=== PATIENT | male | born 1935 | race American Indian/Alaskan Native ===

== ENCOUNTER 2017-11-23 10:05 | Inpatient (IN) | payer MEDICARE, OTHER ==
--- NOTE | 2017-11-23 10:13 | ED PDOC ---
Arrival/HPI - General Historian: Patient <Rodger Massey - Last Filed: 11/23/17 11:45> <ColeenHan jefferson - Last Filed: 11/23/17 17:17> - General Time Seen by Provider: 11/23/17 10:09 - History of Present Illness Narrative History of Present Illness (Text): 11/23/17 10:11 82 y/o male, pmh including a.fibb/dm/bph/chf/copd, taking xarelto, allergic penicillin/iodine, c/o coughing x 1 week. Pt. stated that he has been coughing for the past 1 week, worsening for the past 4 days with shortness of breath, admits fatigue, previous senior living smoker, no night sweat, no rash, no palpitation, no leg swelling, no palpitation, no night sweat, no rash, no other medical or psychological complaints. Pt. admits shortness of breath with excessive coughing (Rodger Massey) Past Medical History - Provider Review Nursing Documentation Reviewed: Yes - Infectious Disease Hx of Infectious Diseases: None - Cardiac Hx Atrial Fibrillation: Yes Hx Cardiac Arrhythmia: Yes (07-08-16) Hx Congestive Heart Failure: Yes Hx Hypertension: Yes Hx Pacemaker: Yes Hx Peripheral Edema: Yes - Pulmonary Hx Asthma: Yes Hx Chronic Obstructive Pulmonary Disease (COPD): Yes Hx Pneumonia: Yes Hx Sleep Apnea: Yes - Neurological Hx Neurological Disorder: Yes - HEENT Hx HEENT Disorder: Yes Hx Cataracts: Yes (NADEGE. CATARACT EXTRACTION, 2004) Hx Glaucoma: Yes ("TOUCH") - Renal Hx Kidney Stones: Yes - Endocrine/Metabolic Hx Endocrine Disorders: Yes Hx Diabetes Mellitus Type 2: Yes - Hematological/Oncological Hx Anemia: Yes - Integumentary Hx Dermatological Disorder: No - Musculoskeletal/Rheumatological Hx Arthritis: Yes Hx Fractures: Yes (LEFT UPPER ARM) Hx Osteoporosis: Yes - Gastrointestinal Hx Diverticulitis: Yes - Genitourinary/Gynecological Hx Genitourinary Disorders: No Hx Prostate Problems: Yes (BPH) Hx Urinary Tract Infection: Yes Other/Comment: BPH. over active bladder - Psychiatric Hx Depression: Yes Hx Substance Use: No - Past Surgical History Past Surgical History: No Previous - Surgical History Hx Cardiac Catheterization: Yes (X3) Hx Orthopedic Surgery: Yes (LEFT UPPER ARM FX. WITH METAL PINS) - Anesthesia Hx Anesthesia: Yes Hx Anesthesia Reactions: No Hx Malignant Hyperthermia: No - Suicidal Assessment Feels Threatened In Home Enviroment: No <Rodegr Massey - Last Filed: 11/23/17 11:45> Family/Social History - Physician Review Nursing Documentation Reviewed: Yes Family/Social History: Unknown Family HX Smoking Status: Former Smoker Hx Alcohol Use: No Hx Substance Use: No <Rodger Massey - Last Filed: 11/23/17 11:45> Allergies/Home Meds <Rodger Massey - Last Filed: 11/23/17 11:45> <Han Horne - Last Filed: 11/23/17 17:17> Allergies/Adverse Reactions: Allergies Iodine and Iodide Containing Produc Allergy (Verified 11/23/17 10:06) SWELLING Penicillins Allergy (Verified 11/23/17 10:06) RASH Home Medications: Home Meds Medication Instructions Recorded Confirmed Ambrisentan [Letairis] 10 mg PO DAILY 01/08/14 11/23/17 Tamsulosin [Flomax] 0.4 mg PO DAILY 04/27/15 11/23/17 Metformin HCl [Glucophage] 500 mg PO BID 07/08/16 11/23/17 Pantoprazole [Protonix EC Tab] 40 mg PO DAILY 07/08/16 11/23/17 Polyethylene Glycol 3350 [Miralax] 3 ml PO DAILY 07/08/16 11/23/17 Pravastatin Sodium 40 mg PO HS 07/08/16 11/23/17 Riociguat [Adempas] 2 mg PO TID 11/21/16 11/23/17 Tramadol HCl/Acetaminophen 1 tab PO BID 11/21/16 11/23/17 [Acetaminophen-Tramadol HCl 325 mg-37.5 mg] Cholecalciferol [Vitamin D 1000 IU] 2,000 unit PO DAILY 11/23/17 11/23/17 Fluticasone Propionate [Flovent 2 puff NEB BID 11/23/17 11/23/17 Hfa] Ipratropium [Atrovent HFA] 2 puff NEB QID 11/23/17 11/23/17 Levocetirizine Dihydrochloride 5 mg PO DAILY 11/23/17 11/23/17 [Xyzal] Multivitamin [Men's Multi-Vitamin] 1 tab PO DAILY 11/23/17 11/23/17 Rivaroxaban [Xarelto] 20 mg PO QPM 11/23/17 11/23/17 Review of Systems - Review of Systems Constitutional: absent: Fatigue, Fevers Eyes: absent: Vision Changes ENT: absent: Hearing Changes Respiratory: SOB, Cough, Sputum. absent: Wheezing Cardiovascular: Chest Pain Gastrointestinal: absent: Abdominal Pain, Nausea, Vomiting Musculoskeletal: absent: Arthralgias, Back Pain Skin: absent: Rash, Pruritis Neurological: absent: Headache Psychiatric: absent: Anxiety, Depression, Suicidal Ideation <Rodger Massey Q - Last Filed: 11/23/17 11:45> Physical Exam Vital Signs Reviewed: Yes Temperature: Afebrile Blood Pressure: Normal Pulse: Regular Respiratory Rate: Normal Appearance: Positive for: Ill-Appearing, Uncomfortable Pain Distress: None Mental Status: Positive for: Alert and Oriented X 3 - Systems Exam Head: Present: Atraumatic, Normocephalic Pupils: Present: PERRL Extroacular Muscles: Present: EOMI Conjunctiva: Present: Normal Mouth: Present: Moist Mucous Membranes Neck: Present: Normal Range of Motion Respiratory/Chest: Present: Wheezes, Decreased Breath Sounds, Rhonchi. No: Respiratory Distress, Accessory Muscle Use, Rales, Retracting, Tachypneic Cardiovascular: Present: Regular Rate and Rhythm, Normal S1, S2. No: Murmurs Abdomen: No: Tenderness, Distention, Peritoneal Signs Back: Present: Normal Inspection Upper Extremity: Present: Normal Inspection. No: Cyanosis, Edema Lower Extremity: Present: Normal Inspection. No: Edema Neurological: Present: GCS=15, Speech Normal, Motor Func Grossly Intact, Gait Normal, Memory Normal Skin: Present: Warm, Dry, Normal Color. No: Rashes Psychiatric: Present: Alert, Oriented x 3, Normal Insight, Normal Concentration <Rodger Massey Q - Last Filed: 11/23/17 11:45> Vital Signs Temp Pulse Resp BP Pulse Ox 11/23/17 14:00 78 11/23/17 13:19 98 H 18 148/69 100 11/23/17 12:59 98.2 F 60 16 153/70 H 11/23/17 10:48 98.2 F 60 16 153/70 H 100 11/23/17 10:10 98.4 F 69 17 148/71 94 L Medical Decision Making - Critical Care Critical Care Minutes: 30 minutes Critical Care Time: Unstable - Lab Interpretations I have reviewed the lab results: Yes - RAD Interpretation Engineering Laboratory Technician: Radiologist - EKG Interpretation Interpreted by ED Physician: Yes Type: 12 lead EKG Comparison: Com.w/previous EKG <Rodger Massey - Last Filed: 11/23/17 11:45> <ColeenLisaWestalana - Last Filed: 11/23/17 17:17> ED Course and Treatment: 11/23/17 10:28 -labs/cardiac enzyme/bnp/rapid flu -ekg -cxr -IV duoneb/solumedrol -observe and reassess 11/23/17 11:35 -HEART score is 4 (pt. is on xarelto) -EKG: NSR @ 66 BPM, no acute ST or T wave changes compared with previous ekg. -Chest xray show no active disease -Labs show no acute findings -Rapid flu is negative -BNP 470 -Cardiac enzyme is negative for the first set, will need 24 hours set -Pt. feels still chest is congested, wheezing decreased but still persist, exertion shortness of breath, will admit to tele for observation, Pt. request to admit to Dr. Maya service as he was seen by Dr. Maya before. -Dr. Maya paged. 11/23/17 11:45 -I discussed the case with Dr. Maya, discussed about the labs/radiologist results, agreed to admit to her service with Dr. Omalley on the routine consult. -I discussed the case with Dr. Horne, discussed about the labs/radiologist results, he will put in the admission. (Rodger Massey) - Critical Care Narrative Critical Care (Text): 11/23/17 11:45 pt. received 3 duonebs with IV steroid, limited relief and not completely asymptomatic, will need observation to tele. (Rodger Massey) - Lab Interpretations Lab Results: 11/23/17 10:45 11/23/17 10:45 Lab Results 11/23/17 10:45: Sodium 141, Potassium 3.7, Chloride 101, Carbon Dioxide 30, Anion Gap 14, BUN 18, Creatinine 1.2, Est GFR ( Amer) > 60, Est GFR (Non- Af Amer) 58, Random Glucose 110, Calcium 9.1, Magnesium 1.9, Total Bilirubin 0.4 , AST 22, ALT 26, Alkaline Phosphatase 46, Lactate Dehydrogenase 441, Total Creatine Kinase 218, Troponin I 0.02 D, NT-Pro-B Natriuret Pep 470 H, Total Protein 7.2, Albumin 4.4, Globulin 2.8, Albumin/Globulin Ratio 1.6 11/23/17 10:45: Influenza Typ A,B (EIA) Negative for flu a/b 11/23/17 10:45: WBC 3.4 L D, RBC 3.81, Hgb 11.1 L, Hct 34.3 L, MCV 90.0, MCH 29.1, MCHC 32.4, RDW 14.7 H, Plt Count 111 L, MPV 9.7, Gran % 59.8, Lymph % ( Auto) 26.2, Hamb[place] % (Auto) 8.2 H, Eos % (Auto) 5.5 H, Baso % (Auto) 0.3, Gran # 2.05, Lymph # (Auto) 0.9 L, Hamblen # (Auto) 0.3, Eos # (Auto) 0.2, Baso # (Auto) 0.01 - RAD Interpretation Radiology Orders: 11/23/17 10:26 CHEST PORTABLE [RAD] Stat LUNGS: No active pulmonary disease. PLEURA: No significant pleural effusion identified, no pneumothorax apparent. CARDIOVASCULAR: Normal. OSSEOUS STRUCTURES: No significant abnormalities. VISUALIZED UPPER ABDOMEN: Normal. OTHER FINDINGS: None. IMPRESSION: No active disease. (Rodger Massey) - EKG Interpretation EKG Interpretation (Text): 11/23/17 10:48 -EKG: NSR @ 66 BPM, no acute ST or T wave changes compared with previous ekg. ( Rodger Massey) - Medication Orders Current Medication Orders: Arformoterol Tartrate (Brovana) 15 mcg IH [id number] [facility] Atorvastatin Calcium (Lipitor) 10 mg PO HS [facility] Budesonide (Pulmicort Respules) 0.5 mg IH [id number] [facility] Cholecalciferol (Vitamin D) 1,000 intlu PO DAILY [facility] Doxycycline Hyclate (Doryx) 100 mg PO Q12 [facility] PRN Reason: Protocol Metformin HCl (Glucophage) 500 mg PO BID [facility] Methylprednisolone (Solu-Medrol) 40 mg IVP Q12 [facility] Montelukast Sodium (Singulair) 10 mg PO HS [facility] Multivitamins (Thera Tab) 1 tab PO DAILY [facility] Non-Formulary Medication (Ambrisentan [Letairis]) 10 mg PO DAILY [facility] Non-Formulary Medication (Riociguat [Adempas]) 2 mg PO TID [facility] Pantoprazole Sodium (Protonix Ec Tab) 40 mg PO DAILY [facility] Polyethylene Glycol (Miralax) 17 gm PO DAILY [facility] Rivaroxaban (Xarelto) 20 mg PO QPM [facility] PRN Reason: Protocol Sotalol HCl (Betapace) 80 mg PO BID [facility] Tamsulosin HCl (Flomax) 0.4 mg PO DAILY [facility] Tramadol/Acetaminophen (Ultracet 37.5/325 Mg) 1 tab PO BID [facility] Discontinued Medications Albuterol/Ipratropium (Duoneb 3 Mg/0.5 Mg (3 Ml) Ud) 3 ml IH STAT STA Stop: 11/23/17 10:27 Last Admin: 11/23/17 10:27 Dose: 3 ml Albuterol/Ipratropium (Duoneb 3 Mg/0.5 Mg (3 Ml) Ud) 3 ml IH STAT STA Stop: 11/23/17 10:28 Last Admin: 11/23/17 10:47 Dose: 3 ml Albuterol/Ipratropium (Duoneb 3 Mg/0.5 Mg (3 Ml) Ud) 3 ml IH STAT STA Stop: 11/23/17 11:47 Last Admin: 11/23/17 11:48 Dose: Methylprednisolone (Solu-Medrol) 125 mg IVP STAT STA Stop: 11/23/17 11:35 Last Admin: 11/23/17 11:47 Dose: 125 mg IVP Administration Document 11/23/17 11:47 EWO (Rec: 11/23/17 11:47 EWO [id number]) Charges for Administration # of IVP Administrations 1 - PA / [employer] DES[employer]ER / Resident Statement / has reviewed & agrees with the documentation as recorded. <Rodger Massey - Last Filed: 11/23/17 11:45> - PA / COSTUME DESIGN TEACHER / Resident Statement / has reviewed & agrees with the documentation as recorded. <Han Horne - Last Filed: 11/23/17 17:17> Disposition/Present on Arrival - Present on Arrival Any Indicators Present on Arrival: No History of DVT/PE: No History of Uncontrolled Diabetes: No Urinary Catheter: No History of Decub. Ulcer: No History Surgical Site Infection Following: None - Disposition Have Diagnosis and Disposition been Completed?: Yes Disposition Time: 10:29 Patient Plan: Admission, Observation, Telemetry <Rodger Massey - Last Filed: 11/23/17 11:45> <Han Horne - Last Filed: 11/23/17 17:17> - Disposition Diagnosis: COPD (chronic obstructive pulmonary disease), Chest pain Disposition: HOSPITALIZED Patient Problems: Current Active Problems Problem Status Onset COPD (chronic obstructive pulmonary disease) Acute Chest pain Acute Condition: STABLE
[2017-11-23] MEDS ORDERED: Albuterol-Ipratrop 3 mg / 0.5 (3 ml) UD IH STA ×3 (10:26→11:46)
[2017-11-23 10:53] LABS: BASO # 0.01 K/mm3 (0.0-2.0); BASO % 0.3 % (0.0-3.0); EOS # 0.2 (0.0-0.7); EOS % 5.5 % (1.5-5.0); GRAN # 2.05 (1.4-6.5); GRAN % 59.8 % (50.0-68.0); HEMOGLOBIN 11.1 g/dL (14.0-18.0); LYMPH # 0.9 (1.2-3.4); LYMPH % 26.2 % (22.0-35.0); MEAN CORPUSCULAR HEMOGLOBIN 29.1 pg (25.0-35.0); MEAN CORPUSCULAR HGB CONC 32.4 g/dl (31.0-37.0); MEAN PLATELET VOLUME 9.7 fl (7.0-11.0); MONO # 0.3 (0.1-0.6); MONO % 8.2 % (1.0-6.0); RBC 3.81 10^6/uL (3.5-6.1); RED CELL DISTRIBUTION WIDTH 14.7 % (11.5-14.5); WHITE BLOOD COUNT 3.4 10^3/ul (4.5-11.0)
--- NOTE | 2017-11-23 10:56 | RAD ---
HISTORY: cough COMPARISON: 07/08/2016 FINDINGS: LUNGS: No active pulmonary disease. PLEURA: No significant pleural effusion identified, no pneumothorax apparent. CARDIOVASCULAR: Normal. OSSEOUS STRUCTURES: No significant abnormalities. VISUALIZED UPPER ABDOMEN: Normal. OTHER FINDINGS: None. IMPRESSION: No active disease.
[2017-11-23 11:06] LABS: ALB/GLOB RATIO 1.6 (1.1-1.8); ALBUMIN 4.4 g/dL (3.0-4.8); ALT/SGPT 26 U/L (7-56); AST/SGOT 22 U/L (17-59); BLOOD UREA NITROGEN 18 mg/dL (7-21); CALCIUM 9.1 mg/dL (8.4-10.5); GFR AFRICAN-AMERICAN > 60; GFR NON-AFRICAN AMERICAN 58
[2017-11-23 11:17] LABS: B-TYPE NATRIURETIC PEPTIDE 470 pg/mL (0-450); TROPONIN I 0.02 ng/mL
[2017-11-23] MEDS ORDERED: Albuterol-Ipratrop 3 mg / 0.5 (3 ml) UD IH SCH (11:45)
[2017-11-23 13:05] VITALS: BMI 30.9
[2017-11-23] MEDS: TraMADol/Apap 37.5/325 mg Tab PO SCH (17:27)
[2017-11-23] MEDS: RIOCIGUAT 2 MG PO SCH (17:29)
[2017-11-23] MEDS: Budesonide 0.5 mg/2 ml Inhal Susp UD IH SCH (20:15)
[2017-11-23] MEDS: Arformoterol 15 mcg/2 ml Inh Sol IH SCH (20:15)
[2017-11-23] MEDS: MethylPREDNISolone 40 mg Vial IVP SCH (21:31)
[2017-11-23] MEDS ORDERED: guaiFENesin 200 mg/10 ml Syrup UD PO STA (21:37)
--- NOTE | 2017-11-23 22:55 | CON ---
DATE: PULMONARY CONSULTATION REFERRING PHYSICIAN: Janelle Maya MD REASON FOR CONSULTATION: Cough, shortness of breath, rhinitis, sleep apnea syndrome. HISTORY OF PRESENT ILLNESS: This is an 82-year-old gentleman with known history of chronic obstructive lung disease, sleep apnea syndrome, congestive heart failure, diabetes, atrial fibrillation, comes in with rhinitis, postnasal drip, cough, facial pain. No hemoptysis, no hematemesis, no hematuria. No diarrhea reported. He had been noncompliant with CPAP. Claims that he gets congested nasal passages. PAST MEDICAL HISTORY: As per history of present illness, has a pacemaker, also has leg edema, history of renal stone, cataract surgery, diabetes, anemia, diverticulitis, BPH. SOCIAL HISTORY: Recent history of smoking. Denies any alcohol use. FAMILY HISTORY: No significant cardiopulmonary disease reported. ALLERGIES: IODINE AND PENICILLIN. MEDICATIONS: DuoNeb was given, also Solu-Medrol 125 mg one dose was given. His home medications are multivitamin, vitamin D, Xyzal, Atrovent, Flovent, Xarelto, metformin, Flomax, Adempas, Letairis and sotalol. REVIEW OF SYSTEMS: On and off headache, facial pain, rhinitis, postnasal drip, cough, shortness of breath. No chest pain, no nausea, no vomiting, no diarrhea, no dysuria. Does have some leg swelling. PHYSICAL EXAMINATION: GENERAL: Lying in the bed. VITAL SIGNS: Temperature is 98, heart rate is 98, respiratory rate is 20, blood pressure 148/69, pulse ox 100% on nasal cannula. HEENT: Moist mucous membranes. Small oral cavity. Crowded airway. Has a bilateral maxillary sinus tenderness. NECK: Supple. No JVD. LUNGS: Has a scattered rhonchi and few wheezing. HEART: S1 and S2. ABDOMEN: Soft, nontender. No organomegaly. EXTREMITIES: No edema. NEUROLOGIC: Awake, alert, follows simple commands. LABORATORY DATA: Shows hemoglobin 11.1, hematocrit 34.3, WBC 3.4, platelet is 111. Sodium 141, potassium 3.7, chloride 101, bicarbonate 30, BUN 18, creatinine 1.2, glucose 110, calcium is 9.1, magnesium 1.9, total bili 0.4, AST 22, ALT 26, alk phos is 46. LDH 441, proBNP 470, albumin is 4.4. Influenza A and B have been negative. Chest x-ray done in ER shows no active pulmonary disease. IMPRESSION AND PLAN: Sinusitis with postnasal drip, exacerbation of chronic obstructive lung disease, also has a sleep apnea syndrome, chronic obstructive lung disease, history of atrial fibrillation, pulmonary hypertension, diabetes, hypertension, cardiac arrhythmia requiring pacemaker, sleep apnea syndrome, history of renal stone. I agree with Dr. Maya's present treatment. We will continue IV Solu-Medrol, start him on doxycycline 100 mg twice a day, Singulair 10 mg at bedtime, Flonase one spray each nostril twice a day, Singulair 10 mg at bedtime. We will place him on CPAP 10 cm with 30% oxygen, gastric prophylaxis. Continue anticoagulation. We recommend pulmonary function tests as outpatient. Encourage the patient to use continuous positive airway pressure. Thank you and we will follow with you. Carey Omalley MD
--- NOTE | 2017-11-24 04:27 | HP ---
CHIEF COMPLAINT: Coughing and shortness of breath, congested. HISTORY OF PRESENT ILLNESS: Mr. Anup Cain is an 82-year-old male with past medical history of atrial fibrillation, diabetes mellitus, BPH, congestive heart failure, COPD, taking Xarelto, came with coughing 1 week. Patient states that he has been coughing for the past 1 week, worsening for the past 4 days with shortness of breath, admits to fatigue, congested, previous long-term smoker. No night sweats. No rash. No palpitation. No swelling of legs. No fever, no chills. Patient admits to shortness of breath with excessive coughing. PAST MEDICAL HISTORY: Atrial fibrillation, is on Xarelto, congestive heart failure, hypertension, pacemaker, peripheral edema, asthma, COPD, pneumonia, sleep apnea, bilateral cataract extraction, glaucoma, kidney stones, diabetes mellitus, anemia, arthritis, fracture of the left upper arm, osteoporosis, BPH, UTI, overactive bladder, depression, cardiac catheterization. FAMILY HISTORY: Father and mother, noncontributory. HABITS: Former smoker. No drug, no ethanol now. ALLERGIES: PATIENT IS ALLERGIC WITH IODINE AND IODINE CONTAINING PRODUCTS, PENICILLIN. HOME MEDICATIONS: Letairis, Flomax, glucagon, Protonix, pravastatin, tramadol, vitamin D, atorvastatin, Xyzal, Xarelto, multivitamins. REVIEW OF SYSTEMS: Patient was seen and examined at the bedside in the emergency room, coughing with shortness of breath, dyspneic, nasal congestion, feeling fatigued and feverish. No vision changes. No hearing loss. No chest pain or abdominal pain, arthralgia, back pain. No rash or pruritus. No headache. No anxiety. PHYSICAL EXAMINATION: VITAL SIGNS: Temperature 98.2, pulse 60, respiratory rate 16, blood pressure 153/70, pulse oximetry 100%. HEENT: Head normocephalic, atraumatic. Eyes PERRLA. Extraocular muscles intact. Conjunctivae clear. Nose patent. Mucous membrane moist. NECK: Supple. No carotid bruit. No JVD or thyromegaly. CHEST: Bilaterally symmetrical. HEART: S1 and S2 positive. LUNGS: Clear to auscultation. ABDOMEN: Soft. Bowel sounds positive. No organomegaly. EXTREMITIES: No edema. No cyanosis. NEUROLOGICAL: The patient is awake and alert. Moving all 4 extremities. No focal deficits. LABORATORY DATA: White blood cells 3.4, hemoglobin 11.1, hematocrit 34.3, platelets 111. Sodium 141, potassium 3.7, BUN 18, creatinine 1.2, glucose 110. ASSESSMENT AND PLAN: Mr. Anup Cain is an 82-year-old male with multiple medical problems, leukopenia, anemia, thrombocytopenia, came with coughing, congestion. Has chronic obstructive pulmonary disease, chest pain. We kept the patient overnight. Pulmonary consult called. Patient has history of atrial fibrillation, diabetes mellitus, benign prostatic hypertrophy, congestive heart failure, chronic obstructive pulmonary disease, taking Xarelto. ALLERGIES TO PENICILLIN AND IODINE. Complaining of coughing of 1 week. Medications given. Bring old record. Restarted on Letairis, sotalol, Brovana, doxycycline, albuterol, metformin, atorvastatin, polysubstance abuse, MiraLax, Pulmicort Respules given also. Gastrointestinal and deep vein thrombosis prophylaxis. Repeat labs. We will follow up. Janelle Maya MD
[2017-11-24] MEDS: Arformoterol 15 mcg/2 ml Inh Sol IH SCH ×2 (08:34→20:20)
[2017-11-24] MEDS: Budesonide 0.5 mg/2 ml Inhal Susp UD IH SCH ×2 (08:34→20:20)
--- NOTE | 2017-11-24 08:48 | CARD ---
APPROVED REPORT EKG Measurement Heart [id number] <Conclusion> Normal sinus rhythm QS V 1, possible septal OH, new since 07/11/[address] & T wave abnormality, consider lateral ischemia Prolonged QT
[2017-11-24] MEDS: AMBRISENTAN 10 MG PO SCH (09:42)
[2017-11-24] MEDS: TraMADol/Apap 37.5/325 mg Tab PO SCH ×2 (09:43→17:25)
[2017-11-24] MEDS: Multivitamin Therapeutic Tab PO SCH (09:43)
[2017-11-24] MEDS: MethylPREDNISolone 40 mg Vial IVP SCH ×2 (09:43→21:11)
[2017-11-24] MEDS: Pantoprazole 40 mg EC Tab PO SCH (09:43)
[2017-11-24] MEDS: POLYETHYLENE GLYCOL 3350 17 GM/Dose PACKET PO SCH (09:43)
[2017-11-24] MEDS: Cholecalciferol 1,000 INTLU TAB PO SCH (09:43)
[2017-11-24] MEDS: RIOCIGUAT 2 MG PO SCH ×3 (09:43→17:26)
--- NOTE | 2017-11-24 23:13 | PN ---
DATE: 11/24/2017 PULMONARY PROGRESS NOTE REFERRING PHYSICIAN: Janelle Maya MD SUBJECTIVE: He is sitting at side of the bed, feels better than yesterday. Still has rhinitis, cough, shortness of breath. Used CPAP last night. No leg pain or leg swelling. OBJECTIVE: GENERAL: In no acute distress. VITAL SIGNS: Temp is 98, heart rate 61, respiratory rate is 20, blood pressure 153/70, pulse ox 96% on nasal cannula. HEENT: Moist mucous membrane. Crowded airway. NECK: Supple. No JVD. LUNGS: Have scattered rhonchi. Some wheezing. HEART: S1 and S2. ABDOMEN: Soft and nontender. No organomegaly. EXTREMITIES: No edema. NEUROLOGIC: Awake and alert. Follows simple command. MEDICATIONS: He is on Letairis 10 mg daily, sotalol 80 mg twice a day, Brovana inhaled twice a day, doxycycline 100 mg twice a day, Flomax 0.4 mg daily, metformin 500 mg twice a day, Lipitor 10 mg daily, MiraLax 17 g daily, Protonix 40 mg daily, Pulmicort inhaled twice a day, Adempas 2 mg 3 times a day, Singulair 10 mg daily, Solu-Medrol 40 mg every 12 hour, multivitamins daily, Ultracet 37.5/325 one tab twice a day, vitamin D 1000 International Unit daily, Xarelto 20 mg daily. LABORATORY DATA: Showed blood sugar today 132. Influenza A and B is negative. IMPRESSION AND PLAN: Chronic sinusitis with acute onset chronic obstructive lung disease, sleep apnea syndrome, atrial fibrillation, pulmonary hypertension, diabetes, hypertension; cardiac arrhythmia, requiring pacemaker; history of renal stone. Pulmonary point of view, continue intravenous and inhaled bronchodilator. Continue antibiotics. Encourage CPAP use. Gastric prophylaxis and deep vein thrombosis prophylaxis. Continue pulmonary vasodilator. Follow up labs in the morning. Thank you and we will follow with you. Carey Omalley MD
[2017-11-25] MEDS: Arformoterol 15 mcg/2 ml Inh Sol IH SCH ×2 (07:25→20:12)
[2017-11-25] MEDS: Budesonide 0.5 mg/2 ml Inhal Susp UD IH SCH ×2 (07:25→20:12)
[2017-11-25 08:14] LABS: ALB/GLOB RATIO 1.5 (1.1-1.8); ALBUMIN 4.3 g/dL (3.0-4.8); ALT/SGPT 28 U/L (7-56); AST/SGOT 23 U/L (17-59); BLOOD UREA NITROGEN 29 mg/dL (7-21); CALCIUM 9.5 mg/dL (8.4-10.5); GFR AFRICAN-AMERICAN > 60; GFR NON-AFRICAN AMERICAN > 60
--- NOTE | 2017-11-25 09:35 | PN ---
DATE: 11/24/2017 SUBJECTIVE: The patient is seen and examined at the bedside, looking comfortable. Cough is better. Shortness of breath is better. Nasal congestion is better. No fever, no chills. No hematuria or hematochezia. No swelling of the legs. No chest pain. No palpitation. No dizziness. No blurring of vision. PHYSICAL EXAMINATION: VITAL SIGNS: Temperature 98, pulse 61, blood pressure 152/72, respiratory rate 20. HEENT: Head normocephalic and atraumatic. Eyes, PERRLA. Extraocular muscles intact. Conjunctivae clear. Nose patent. Mucous membranes moist. NECK: Supple. No carotid bruits. No JVD or thyromegaly. CHEST: Bilaterally symmetrical. HEART: S1 and S2 positive. LUNGS: Clear to auscultation. ABDOMEN: Soft. Bowel sounds present. No organomegaly. EXTREMITIES: No edema. No cyanosis. NEUROLOGIC: The patient is awake, alert. Moving all four extremities. No focal deficits. MEDICATIONS: Brovana, doxycycline, Flomax, metformin, Lipitor, MiraLax, Protonix, Pulmicort, Adempas, Singulair, Solu-Medrol, tramadol, Crestor, Xarelto. LABORATORY DATA: White blood cells 3.4, hemoglobin 11.1, hematocrit 34.3, platelets 111. Sodium 141, potassium 3.7, BUN 18, creatinine 1.2; glucose 58, 114. BNP 270. ASSESSMENT AND PLAN: The patient is an 82-year-old male with leukopenia, anemia, thrombocytopenia, uncontrolled diabetes mellitus, congestive heart failure. Influenza type A and B is negative. Has sinusitis with postnasal drip, exacerbation of chronic obstructive lung disease, sleep apnea syndrome, history of atrial fibrillation, pulmonary hypertension, hypertension, cardiac arrhythmias, requiring pacemaker, history of nephrolithiasis. Continue Solu-Medrol. started the patient on doxycycline. is given. The patient is getting CPAP at 10 cm with 30% oxygen. Gastric prophylaxis. Continue anticoagulation. Requiring pulmonary function tests as outpatient. Gastrointestinal and deep venous thrombosis prophylaxis. Repeat labs. We will follow up. Janelle Maya MD [facility] # [id number] MTDD
[2017-11-25] MEDS: POLYETHYLENE GLYCOL 3350 17 GM/Dose PACKET PO SCH (09:58)
[2017-11-25] MEDS: MethylPREDNISolone 40 mg Vial IVP SCH ×2 (09:58→21:16)
[2017-11-25] MEDS: Multivitamin Therapeutic Tab PO SCH (10:00)
[2017-11-25] MEDS: Pantoprazole 40 mg EC Tab PO SCH (10:00)
[2017-11-25] MEDS: Cholecalciferol 1,000 INTLU TAB PO SCH (10:00)
[2017-11-25] MEDS: AMBRISENTAN 10 MG PO SCH (10:01)
[2017-11-25] MEDS: RIOCIGUAT 2 MG PO SCH ×3 (10:03→17:48)
[2017-11-25] MEDS: TraMADol/Apap 37.5/325 mg Tab PO SCH ×2 (10:06→17:45)
--- NOTE | 2017-11-26 05:08 | PN ---
DATE: PULMONARY PROGRESS NOTE REFERRING PHYSICIAN: Janelle Maya MD. SUBJECTIVE: He is sitting on the side of the bed, having dinner. Night was unremarkable. Part of the night, he uses BiPAP. Still has rhinitis, postnasal drip, cough, and shortness of breath. No nausea. No vomiting or diarrhea. No leg pain or leg swelling. OBJECTIVE: GENERAL: In no acute distress. VITAL SIGNS: Temperature is 98, heart rate is 56, respiratory rate is 18, blood pressure 147/57, pulse ox 95% on nasal cannula. HEENT: Moist mucous membrane. Crowded airway. Mallampati score is 4. NECK: Supple. No JVD. LUNGS: Fair air flow, with scattered rhonchi. HEART: S1 and S2. ABDOMEN: Soft and nontender. No organomegaly. EXTREMITIES: No edema. NEUROLOGIC: Awake and alert. Follows simple command. MEDICATIONS: He is on Letairis 10 mg daily, Betapace 80 mg twice a day, Brovana inhaled twice a day, doxycycline 100 mg twice a day, Flomax 0.4 mg daily, metformin 500 mg twice a day, Lipitor 10 mg at bedtime, MiraLax 17 g daily, Flonase 1 spray each nostril daily, Protonix 40 mg daily, Pulmicort inhaled twice a day, Adempas 2 mg three times a day, Singulair 10 mg daily, Solu-Medrol 40 mg every 12 hours, multivitamins daily, Ultracet 37.5/325 one tab every 12 hours, vitamin D 1000 International Unit daily, Xarelto 20 mg daily. LABORATORY DATA: Sodium 142, potassium 4.7, chloride 100, bicarbonate 31, BUN 29, creatinine 1.1, calcium 9.5. AST 23, ALT 28, alkaline phosphatase 45, albumin 4.3. IMPRESSION AND PLAN: Chronic sinusitis with acute onset, also chronic obstructive lung disease, sleep apnea syndrome, atrial fibrillation, pulmonary hypertension, diabetes, hypertension, cardiac arrhythmia requiring pacemaker, history of renal stone. Pulmonary point of view, doing okay, still has rhinitis and post nasal drip. We will increase Solu-Medrol to 40 every 8 hours. Continue doxycycline, inhaled bronchodilator, gastric prophylaxis, anticoagulation. Thank you and we will follow with you. Carey Omalley MD [facility] # [id number]
--- NOTE | 2017-11-26 05:23 | PN ---
DATE: SUBJECTIVE: Patient was seen and examined at bedside, looking comfortable. No nausea, vomiting or diarrhea. No hematemesis or hematochezia. Still coughing, having shortness of breath, sneezing, runny nose. No fever, no chills. REVIEW OF SYSTEMS: Twelve-point review of systems is within normal limits except above. PHYSICAL EXAMINATION: VITAL SIGNS: Temperature 97.5, pulse 80, respiratory rate 18, blood pressure 147/67. HEENT: Head normocephalic, atraumatic. Eyes PERRLA. Extraocular muscles intact. Conjunctivae clear. Nose patent. Mucous membrane moist. NECK: Supple. No carotid bruit. No JVD or thyromegaly. CHEST: Bilaterally symmetrical. HEART: S1 and S2 positive. LUNGS: Clear to auscultation. ABDOMEN: Soft. Bowel sounds positive. No organomegaly. EXTREMITIES: No edema. No cyanosis. NEUROLOGIC: Patient is awake and alert. Moving all 4 extremities. No focal deficits. MEDICATIONS: Letairis, sotalol, doxycycline, Flomax, Glucophage, Lipitor, MiraLax, Solu-Medrol, Singulair, multivitamins, Xarelto. LABORATORY DATA: White blood cells 3.4, hemoglobin 11.1, hematocrit 34.3, platelets 111. Sodium 142, potassium 3.7, BUN 29, creatinine 1.1, glucose 121. ASSESSMENT AND PLAN: Mr. Anup Cain is an 83-year-old male with leukopenia; anemia; thrombocytopenia; diabetes mellitus, uncontrolled; sinusitis; rhinitis, acute; postnasal drip; chronic obstructive lung disease; sleep apnea syndrome; atrial fibrillation; pulmonary hypertension; cardiac arrhythmias; chronic pacemaker; history of renal stones. Getting tapering dose of steroids, inhaled bronchodilators. Continue antibiotics. Encourage continuous positive airway pressure. Gastric prophylaxis and deep vein thrombosis prophylaxis. Continue pulmonary vasodilators. Repeat labs. We will follow up. Janelle Maya MD MTDD
[2017-11-26 07:24] LABS: HEMOGLOBIN 11.7 g/dL (14.0-18.0); MEAN CELL VOLUME 87.7 fl (80.0-105.0); MEAN CORPUSCULAR HEMOGLOBIN 28.8 pg (25.0-35.0); MEAN CORPUSCULAR HGB CONC 32.9 g/dl (31.0-37.0); RBC 4.06 10^6/uL (3.5-6.1); RED CELL DISTRIBUTION WIDTH 14.1 % (11.5-14.5)
[2017-11-26 07:44] LABS: BLOOD UREA NITROGEN 26 mg/dL (7-21); CALCIUM 9.3 mg/dL (8.4-10.5); GFR AFRICAN-AMERICAN > 60; GFR NON-AFRICAN AMERICAN > 60; HDL CHOLESTEROL 34 mg/dL (29-60); IRON 62 ug/dL (45-180)
[2017-11-26] MEDS: Budesonide 0.5 mg/2 ml Inhal Susp UD IH SCH ×2 (07:45→19:59)
[2017-11-26] MEDS: Arformoterol 15 mcg/2 ml Inh Sol IH SCH ×2 (07:45→19:59)
[2017-11-26 07:53] LABS: % IRON SATURATION 17 % (20-55); TOTAL IRON BINDING CAPACITY 372 ug/dL (261-462)
[2017-11-26 07:55] LABS: LDL CHOLESTEROL 68 mg/dL (0-129)
[2017-11-26] MEDS: RIOCIGUAT 2 MG PO SCH ×3 (10:18→18:15)
[2017-11-26] MEDS: TraMADol/Apap 37.5/325 mg Tab PO SCH ×2 (10:19→18:14)
[2017-11-26] MEDS: Pantoprazole 40 mg EC Tab PO SCH (10:19)
[2017-11-26] MEDS: Multivitamin Therapeutic Tab PO SCH (10:20)
[2017-11-26] MEDS: AMBRISENTAN 10 MG PO SCH (10:21)
[2017-11-26] MEDS: POLYETHYLENE GLYCOL 3350 17 GM/Dose PACKET PO SCH (10:21)
[2017-11-26] MEDS: Cholecalciferol 1,000 INTLU TAB PO SCH (10:25)
[2017-11-26] MEDS: Fluticasone Nasal 50 mcg/Spray NS SCH (10:58)
[2017-11-26 13:45] LABS: FOLATE 10.5 ng/mL
[2017-11-26] MEDS: MethylPREDNISolone 40 mg Vial IVP SCH ×2 (14:35→22:13)
--- NOTE | 2017-11-26 18:47 | PN ---
DATE: 11/26/2017 PULMONARY PROGRESS NOTE REFERRING PHYSICIAN: Janelle Maya MD. SUBJECTIVE: Sitting on side of the bed, having lunch. Night was unremarkable. Feels better. Tolerated BiPAP well. Rhinitis, cough and wheezing a little better. No nausea. No vomiting, diarrhea, leg pain, leg swelling. OBJECTIVE: GENERAL: In no acute distress. VITAL SIGNS: Temperature is 98, heart rate is 69, respiratory rate is 18, blood pressure 153/85, pulse ox 94% on room air. HEENT: Moist mucous membrane. Crowded airway. NECK: Supple. No JVD. LUNGS: Have a few scattered rhonchi. Prolonged expiratory phase, though. HEART: S1 and S2. ABDOMEN: Soft, nontender. No organomegaly. EXTREMITIES: No edema. NEUROLOGIC: Awake, alert, follows simple command. MEDICATIONS: He is on Letairis 10 mg daily, Betapace 80 mg twice a day, Brovana inhaled twice a day, Claritin 10 mg daily, doxycycline 100 mg twice a day, Flomax 0.4 mg daily, Flonase 1 spray each nostril daily, metformin 500 mg twice a day, Lipitor 10 mg daily, MiraLax 17 g daily, nasal saline 2 sprays each nostril every 6 hours, Protonix 40 mg daily, Pulmicort inhaled twice a day, Adempas 2 mg three times a day, Singulair 10 mg daily, Solu-Medrol 40 mg every 8 hours, multivitamins daily, Ultracet 37.5/325 one tab twice a day, vitamin D 1000 International Units daily, Xarelto 20 mg daily. LABORATORY DATA: Shows hemoglobin 11.7, hematocrit 35.6, WBC 7, platelet is 156. Sodium 140, potassium 4.1, chloride 100, bicarbonate 31, BUN 26, creatinine 1.1, glucose 129, calcium 9.3, cholesterol is 132, TSH is 0.94. IMPRESSION AND PLAN: Chronic obstructive lung disease with chronic and acute sinusitis, sleep apnea syndrome, atrial fibrillation, pulmonary retention, diabetes, cardiac arrhythmia requiring pacemaker, also on beta blockers, history of renal stone. Pulmonary point of view, a little bit improved with high dose of steroids. The patient offered to go to [facility] type service with continued care, which he refused. For now, continue continuous positive airway pressure, inhaled bronchodilator, antibiotics, high dose of steroids. We will reevaluate in the morning. Thank you and we will follow with you. Carey Omalley MD
[2017-11-27] MEDS: MethylPREDNISolone 40 mg Vial IVP SCH ×2 (02:42→05:40)
[2017-11-27] MEDS: Arformoterol 15 mcg/2 ml Inh Sol IH SCH ×2 (08:07→20:20)
[2017-11-27] MEDS: Budesonide 0.5 mg/2 ml Inhal Susp UD IH SCH ×2 (08:08→20:20)
[2017-11-27 09:00] VITALS: RESP 20
[2017-11-27] MEDS: AMBRISENTAN 10 MG PO SCH (10:41)
[2017-11-27] MEDS: RIOCIGUAT 2 MG PO SCH ×3 (10:42→22:23)
[2017-11-27] MEDS: Fluticasone Nasal 50 mcg/Spray NS SCH (10:50)
[2017-11-27] MEDS: POLYETHYLENE GLYCOL 3350 17 GM/Dose PACKET PO SCH (10:50)
[2017-11-27] MEDS: Multivitamin Therapeutic Tab PO SCH (10:51)
[2017-11-27] MEDS: Cholecalciferol 1,000 INTLU TAB PO SCH (10:51)
[2017-11-27] MEDS: Pantoprazole 40 mg EC Tab PO SCH (10:51)
[2017-11-27] MEDS: TraMADol/Apap 37.5/325 mg Tab PO SCH ×2 (10:51→22:22)
--- NOTE | 2017-11-27 13:16 | PN ---
DATE: 11/26/2017 SUBJECTIVE: Patient was seen and examined at bedside, looking comfortable. Cough is better. Shortness of breath is better. Postnasal drip is better. Rhinitis is better, but still wheezing, but less. No fever. No chills. No nausea, vomiting or diarrhea. No hematuria or hematochezia. No swelling of the leg. No headache. No dizziness. PHYSICAL EXAMINATION: VITAL SIGNS: Temperature 98, heart rate 69, respiratory rate 18, blood pressure 150/80, pulse oximetry 94% on room air. HEENT: Head: Normocephalic, atraumatic. Eyes: PERRLA. Extraocular muscles intact. Conjunctivae clear. Nose patent. Mucous membrane moist. NECK: Supple. No carotid bruit. No JVD or thyromegaly. CHEST: Bilaterally symmetrical. HEART: S1, S2 positive. LUNGS: Few scattered rhonchi. Prolonged expiratory phase. ABDOMEN: Soft. Bowel sounds present. No organomegaly. EXTREMITIES: No edema. No cyanosis. NEUROLOGIC: The patient is awake, alert. Moving all four extremities. No focal deficits. MEDICATIONS: Letairis, Betapace, Brovana, Claritin, doxycycline, Flomax, Flonase, metformin, Lipitor, MiraLax, Protonix, Pulmicort, Singulair, Solu-Medrol tapering dose, multivitamins, Ultracet, vitamin D, Xarelto. LABORATORY DATA: Hemoglobin 11.7, hematocrit 35.6, white blood cells 7, platelets 156. Sodium 140, potassium 4.1, BUN 26, creatinine 1.1, glucose 129. TSH is 0.94. ASSESSMENT AND PLAN: Mr. Anup Cain with history of chronic obstructive lung disease, came with exacerbation of chronic obstructive lung disease; acute sinusitis; sleep apnea syndrome; atrial fibrillation, on Xarelto for that; diabetes mellitus; cardiac arrhythmia, requiring pacemaker, on beta-rebeca; history of renal stones; advised to drink more water. Patient is on high dose of steroids, improving very slowly. We tried to do TCU for the patient for continuity of care, but patient is refusing, will talk to him again. Continue positive airway pressure, inhaled bronchodilators, antibiotics, gastrointestinal and deep venous thrombosis prophylaxis, repeat labs, out of bed, physical therapy. We will follow up. Janelle Maya MD [facility] # [id number]
[2017-11-27] MEDS ORDERED: MethylPREDNISolone 40 mg Vial IVP SCH ×3 (20:00→23:45)
[2017-11-27] MEDS ORDERED: POLYETHYLENE GLYCOL 3350 17 GM/Dose PACKET PO SCH (20:00)
[2017-11-27 22:21] VITALS: O2SAT 96
--- NOTE | 2017-11-28 03:01 | PN ---
DATE: 11/27/2017 PULMONARY PROGRESS NOTE REFERRING PHYSICIAN: Janelle Maya MD. SUBJECTIVE: He is sitting side of the bed. Night was unremarkable. Part of the night, used BiPAP. No headache, no rhinitis. Still has cough. No nausea, no vomiting, no diarrhea. No leg pain or leg swelling. PHYSICAL EXAMINATION: GENERAL: In no acute distress. VITAL SIGNS: Temperature is 98, heart rate 60, respiratory rate is 20, blood pressure 131/62, pulse ox 96% on room air. HEENT: Moist mucous membranes. Crowded airway. NECK: Supple. No JVD. LUNGS: Have a fair airflow with expiratory wheezing. HEART: S1 and S2. ABDOMEN: Soft, nontender. No organomegaly. EXTREMITIES: No edema. NEUROLOGIC: Awake and alert, follows simple command. MEDICATIONS: He is on Letairis 10 mg daily, sotalol 80 mg twice a day, Brovana 15 mcg twice a day, Claritin 10 mg daily, doxycycline 100 mg twice a day, Flomax 0.4 mg daily, Flonase one spray each nostril daily, metformin 500 mg twice a day, Lipitor 10 mg daily, MiraLax 17 g daily, Protonix 40 mg daily, Pulmicort inhaled twice a day, Adempas 2 mg three times a day, Singulair 10 mg daily, Solu-Medrol 30 mg twice a day, Ultracet 37.5 per 325 one tablet twice a day, vitamin D 1000 International Units daily, and Xarelto 20 mg daily. LABORATORY DATA: Shows blood sugar this morning 142. IMPRESSION AND PLAN: Sinusitis, chronic obstructive lung disease, obstructive sleep apnea syndrome, atrial fibrillation, diabetes, cardiac arrhythmia requiring pacemaker, history of renal stone. Spoke to nurse practitioner today on the floor. Solu-Medrol is decreased. Continue antibiotics. Encourage CPAP use, bronchodilator, gastric prophylaxis. Thank you and we will follow with you. Carey Omalley MD
[2017-11-28] MEDS: Arformoterol 15 mcg/2 ml Inh Sol IH SCH (07:49)
[2017-11-28] MEDS: Budesonide 0.5 mg/2 ml Inhal Susp UD IH SCH (07:50)
[2017-11-28] MEDS ORDERED: Cholecalciferol 1,000 INTLU TAB PO SCH (08:00)
[2017-11-28] MEDS ORDERED: Fluticasone Nasal 50 mcg/Spray NS SCH (08:00)
[2017-11-28] MEDS ORDERED: Multivitamin Therapeutic Tab PO SCH (08:00)
[2017-11-28] MEDS ORDERED: Pantoprazole 40 mg EC Tab PO SCH (08:00)
[2017-11-28 08:13] VITALS: BP 150/75; PULSE 65; TEMP 98.6
[2017-11-28] MEDS: RIOCIGUAT 2 MG PO SCH (08:37)
[2017-11-28] MEDS: TraMADol/Apap 37.5/325 mg Tab PO SCH (08:38)
--- NOTE | 2017-11-28 08:49 | PN ---
DATE: 11/27/2017 SUBJECTIVE: The patient is an 82-year-old male. The patient was seen and examined at the bedside, looking comfortable. No nausea, vomiting, or diarrhea. No hematuria or hematochezia. Cough is better. Shortness of breath is better. Nasal congestion is better. No headache. No dizziness. No fever. No chills. PHYSICAL EXAMINATION: VITAL SIGNS: Temperature 97.7, pulse 60, blood pressure 130/62, respiratory rate 20. HEENT: Head is normocephalic and atraumatic. Eyes: PERRLA. Extraocular muscles are intact. Conjunctivae are clear. Nose patent. Mucous membranes are moist. NECK: Supple. No carotid bruits. No JVD or thyromegaly. CHEST: Bilaterally symmetrical. HEART: S1 and S2 positive. LUNGS: Wheezing bilaterally. ABDOMEN: Soft. Bowel sounds positive. No organomegaly. EXTREMITIES: No edema. No cyanosis. NEUROLOGICAL: The patient is awake and alert. Moving all 4 extremities. No focal deficits. MEDICATIONS: Letairis, sotalol, Brovana, Claritin, doxycycline, Flomax, Flonase, metformin, Lipitor, MiraLax, Protonix, Pulmicort, Singulair, Solu-Medrol tapering dosing, tramadol, vitamin D, and Xarelto. LABORATORY DATA: White blood cells 7, hemoglobin 11.7, hematocrit 35.6, platelets 156. Glucose 142, 114. Flu is negative. ASSESSMENT AND PLAN: Mr. Anup Cain is an 82-year-old male with multiple medical problems; sinusitis; rhinitis, acute; came with chronic obstructive lung disease with exacerbation; sleep apnea syndrome; atrial fibrillation; pulmonary hypertension; diabetes mellitus; cardiac arrhythmia, requiring pacemaker, also on beta-blockers; history of renal stones. The patient is improving very slowly. TCU offered, but the patient refused. The patient is very concerned, he wants to go home even on the day of admission. Educated, urged to stay, so we can taper down steroids slowly, otherwise, he can get re-attack. He understands, but still refusing many things, wants to go home. Now, we are tapering down the steroids rapidly, so we can fulfill his wishes. physical therapy. We will follow up. Janelle Maya MD MTD[facility]onnie
--- NOTE | 2017-11-28 23:17 | PN ---
DATE: 11/28/2017 PULMONARY PROGRESS NOTE REFERRING PHYSICIAN: Janelle Maya MD. SUBJECTIVE: He is sitting up in a bed, ready to go home. Feels better. Decreased cough, decreased shortness of breath. Not very compliant with the BiPAP. No nausea. No vomiting, diarrhea, leg pain, leg swelling. OBJECTIVE: GENERAL: In no acute distress. VITAL SIGNS: Temp is 98, heart rate is 65, respiratory rate is 20, blood pressure 150/75, pulse ox 96% on room air. HEENT: Moist mucous membrane. Crowded airway. Mallampati score is 4. NECK: Supple. No JVD. LUNGS: Have a few scattered rhonchi, overall fair airflow. HEART: S1 and S2. ABDOMEN: Soft, nontender. No organomegaly. EXTREMITIES: No edema. NEUROLOGIC: Awake and alert. Follows simple commands. LABORATORY DATA: Reviewed and blood sugar is 111. MEDICATIONS: Reviewed. No new changes reported. IMPRESSION AND PLAN: Sinusitis, obstructive lung disease, obstructive sleep apnea syndrome, atrial fibrillation, diabetes, cardiac arrhythmia requiring pacemaker, history of renal stone. I spoke to the patient in detail about his disease. Need to follow up with his primary regional business manager. He need to be compliant with the continuous positive airway pressure/bilevel positive airway pressure. Should have a pulmonary function test as outpatient. The patient expressed understanding and we will bilevel positive airway pressure as outpatient. Carey Omalley MD
== END 2017-11-28 11:59 | disposition home or self-care (01) | DRG 192 ==
LOC: ED 10:05 → ERH 12:18 → 2RNO 15:23 → 5RSO 11-24 23:21
PROVIDERS: ADMIT Internal Medicine; ATTEND Internal Medicine
PROC: 5A09357 Assistance with Respiratory Ventilation, Less than 24 Consecutive Hours, Continuous Positive Airway Pressure (ICD-10-PCS; principal; 2017-11-24)
DX: J44.1 Chronic obstructive pulmonary disease with (acute) exacerbation (principal); I48.91 Unspecified atrial fibrillation; I27.20 Pulmonary hypertension, unspecified; J01.90 Acute sinusitis, unspecified; J31.0 Chronic rhinitis; G47.33 Obstructive sleep apnea (adult) (pediatric); E11.65 Type 2 diabetes mellitus with hyperglycemia; N40.1 Benign prostatic hyperplasia with lower urinary tract symptoms; N32.81 Overactive bladder; I11.0 Hypertensive heart disease with heart failure; I50.9 Heart failure, unspecified; M81.0 Age-related osteoporosis without current pathological fracture; D64.9 Anemia, unspecified; H40.9 Unspecified glaucoma; F32.9 Major depressive disorder, single episode, unspecified; M19.90 Unspecified osteoarthritis, unspecified site; J32.9 Chronic sinusitis, unspecified; D72.819 Decreased white blood cell count, unspecified; D69.6 Thrombocytopenia, unspecified; Z98.41 Cataract extraction status, right eye; Z98.42 Cataract extraction status, left eye; Z79.84 Long term (current) use of oral hypoglycemic drugs; Z87.442 Personal history of urinary calculi; Z87.891 Personal history of nicotine dependence; Z95.0 Presence of cardiac pacemaker; Z91.19 Patient's noncompliance with other medical treatment and regimen; Z87.440 Personal history of urinary (tract) infections; Z87.01 Personal history of pneumonia (recurrent); Z79.51 Long term (current) use of inhaled steroids; Z88.0 Allergy status to penicillin; Z79.01 Long term (current) use of anticoagulants

== ENCOUNTER 2018-07-08 12:35 | Day surgery (SDC) | payer MEDICARE, OTHER ==
[2018-07-06 15:14] VITALS: BMI 31.1
[2018-07-08] MEDS ORDERED: Lactated Ringer's 1,000 ML IV SCH (15:30)
[2018-07-08 16:46] VITALS: BP 161/76; RESP 18; TEMP 98
[2018-07-08 17:07] VITALS: PULSE 45; O2SAT 98
== END 2018-07-08 17:29 | disposition home or self-care (01) ==
LOC: ENDO 12:35
PROVIDERS: ATTEND Internal Medicine Gastroenterology
DX: K92.1 Melena (principal); D12.2 Benign neoplasm of ascending colon; D12.4 Benign neoplasm of descending colon; D12.5 Benign neoplasm of sigmoid colon; K57.30 Diverticulosis of large intestine without perforation or abscess without bleeding; K44.9 Diaphragmatic hernia without obstruction or gangrene; D50.9 Iron deficiency anemia, unspecified; K64.8 Other hemorrhoids; J44.9 Chronic obstructive pulmonary disease, unspecified; I48.91 Unspecified atrial fibrillation; Z79.02 Long term (current) use of antithrombotics/antiplatelets
CPT/HCPCS: 43235; 45380; 45381; 45385; 88305; J7040; J7120

== ENCOUNTER 2018-12-23 12:10 | Outpatient (CLI) | payer MEDICARE | END 2018-12-23 12:11 | disposition home or self-care (01) | LOC: RAD 12:10 ==